=== PATIENT | female | born 1990 | race Caucasian/White ===

== ENCOUNTER 2018-05-19 20:24 | Inpatient (IN) | payer MEDICAID ==
[~2018-05-19] VITALS: Ht 149.9 cm; Wt 82.6 kg
[~2018-05-19 20:24] MED LIST: APAP/HYDROCODON1 T13 PO; COL100 PO; KEFLEX500 MG PO; LAC PO; MAC100 PO; MOTRIN800 MG PO; MP PO; NORCO1 TA2 PO; PER5 PO
[2018-05-19 20:35] VITALS: Ht 149.9 cm; Wt 82.6 kg
[2018-05-19 21:29] LABS: CALCIUM 8.9 mg/dL (8.5-10.1); CARBON DIOXIDE 23.9 mmol/L (21-32); CHLORIDE SERUM 102 mmol/L (98-107); CREATININE SERUM 0.8 mg/dL (0.6-1.0); GFR1 > 60 mL/min; GLUCOSE SERUM 187 mg/dL (74-106); POTASSIUM SERUM 3.4 mmol/L (3.5-5.1); SODIUM SERUM 137 mmol/L (136-145)
[2018-05-19 21:31] LABS: RED CELL DISTRIBUTION WIDTH 14.9 % (11.5-14.5)
[2018-05-19 21:34] LABS: UA SPECIFIC GRAVITY 1.025 (1.005-1.035); urine erythrocyte NEGATIVE (NEGATIVE)
[2018-05-19 21:35] LABS: microscopic required? NO
[2018-05-19 21:39] LABS: BAND NEUTROPHIL 0 % (0-10); BASOPHIL 0 % (0-2); MONOCYTE 4 % (0-7); SEGMENTED NEUTROPHILS 79 % (37-75); rbc morphology (normal/abnorm) NORMAL (NORMAL)
[2018-05-19 21:41] LABS: ALBUMIN 3.7 g/dL (3.4-5.0); ALKALINE PHOSPHATASE 545 U/L (46-116); ALT/SGPT 236 U/L (14-59); AST/SGOT 146 U/L (15-37); BILIRUBIN TOTAL 1.7 mg/dL (0.20-1.00); LIPASE 208 IU/L (73-393)
[2018-05-19 21:44] LABS: PLATELET COUNT 521 x10^3mcL (130-400)
[2018-05-19 23:09] VITALS: BP 124/81
[2018-05-19 23:40] LABS: FREE T4 1.42 ng/dL (0.76-1.46)
[2018-05-19 23:43] LABS: FREE THYROXINE INDEX 4.7 ug/dL (1.4-4.5); T4(THYROXINE) 13.9 ug/dL (4.7-13.3)
[2018-05-20 00:20] LABS: PHOSPHOROUS 3.2 mg/dL (2.5-4.9)
[2018-05-20 00:23] LABS: T3 TOTAL 1.29 ng/mL
[2018-05-20 00:26] LABS: CHOLESTEROL/HDL RATIO 13.4
== END 2018-05-20 00:30 | disposition left against medical advice (07) ==
LOC: ED 20:24 → MU 22:14
PROVIDERS: Emergency Medicine; ADMIT Internal Medicine
DX: K83.1 Obstruction of bile duct (principal); F17.210 Nicotine dependence, cigarettes, uncomplicated
CPT/HCPCS: 83880; 84439; J1885; J2405; J2543; J3010; Q0092

== ENCOUNTER 2018-05-22 19:02 | Inpatient (IN) | payer MEDICAID ==
[~2018-05-22] VITALS: Ht 149.9 cm; Wt 79.0 kg
[2018-05-22 20:36] LABS: BASOPHIL % 0.3 % (0-2)
[2018-05-22 20:39] LABS: CALCIUM 9.3 mg/dL (8.5-10.1); CARBON DIOXIDE 27.3 mmol/L (21-32); CHLORIDE SERUM 104 mmol/L (98-107); CREATININE SERUM 0.8 mg/dL (0.6-1.0); GFR1 > 60 mL/min; GLUCOSE SERUM 174 mg/dL (74-106); POTASSIUM SERUM 3.7 mmol/L (3.5-5.1); SODIUM SERUM 142 mmol/L (136-145)
[2018-05-22 20:40] LABS: RED CELL DISTRIBUTION WIDTH 14.7 % (11.5-14.5)
[2018-05-22 20:41] LABS: PLATELET COUNT 606 x10^3mcL (130-400)
[2018-05-22 20:44] LABS: ALKALINE PHOSPHATASE 366 U/L (46-116); ALT/SGPT 149 U/L (14-59); AST/SGOT 40 U/L (15-37); BILIRUBIN TOTAL 1.02 mg/dL (0.20-1.00); LIPASE 286 IU/L (73-393); TOTAL PROTEIN, SERUM 7.6 g/dL (6.4-8.2)
[2018-05-22 20:46] LABS: ALBUMIN 3.2 g/dL (3.4-5.0)
[2018-05-22 22:07] LABS: MAGNESIUM 2.2 mg/dL (1.8-2.4); PHOSPHOROUS 3.6 mg/dL (2.5-4.9)
[2018-05-22 22:07] LABS: UA SPECIFIC GRAVITY >=1.030 (1.005-1.035); microscopic required? YES; urine erythrocyte NEGATIVE (NEGATIVE)
[2018-05-22 22:08] LABS: CHOLESTEROL/HDL RATIO 8.2
[2018-05-22 22:12] LABS: AMPHETAMINE QUAL UR NONE DETECTED (See below)
[2018-05-22 22:12] LABS: T3 TOTAL 1.31 ng/mL
[2018-05-22 22:14] LABS: FREE T4 1.2 ng/dL (0.76-1.46); FREE THYROXINE INDEX 3.6 ug/dL (1.4-4.5); T4(THYROXINE) 10.2 ug/dL (4.7-13.3)
[2018-05-22 22:50] VITALS: BP 121/77
[2018-05-22 22:57] VITALS: Ht 149.9 cm; Wt 79.0 kg
[2018-05-23 05:24] VITALS: BP 94/55
[2018-05-23 06:24] LABS: CALCIUM 8.7 mg/dL (8.5-10.1); CARBON DIOXIDE 26.9 mmol/L (21-32); CHLORIDE SERUM 108 mmol/L (98-107); CREATININE SERUM 0.8 mg/dL (0.6-1.0); GFR1 > 60 mL/min; GLUCOSE SERUM 116 mg/dL (74-106); MAGNESIUM 2.2 mg/dL (1.8-2.4); PHOSPHOROUS 4.6 mg/dL (2.5-4.9); SODIUM SERUM 144 mmol/L (136-145)
[2018-05-23 06:34] LABS: BASOPHIL % 0.2 % (0-2); RED CELL DISTRIBUTION WIDTH 14.9 % (11.5-14.5)
[2018-05-23 06:54] LABS: ALBUMIN 3.5 g/dL (3.4-5.0); BILIRUBIN DIRECT 0.66 mg/dL (0.0-0.2); BILIRUBIN TOTAL 0.85 mg/dL (0.20-1.00); TOTAL PROTEIN, SERUM 7.9 g/dL (6.4-8.2)
[2018-05-23 08:54] VITALS: BP 107/59
[2018-05-23 08:59] LABS: PLATELET COUNT 542 x10^3mcL (130-400)
[2018-05-23 13:00] VITALS: BP 116/70
[2018-05-23 14:11] VITALS: BP 124/77
== END 2018-05-23 16:20 | disposition left against medical advice (07) ==
LOC: ED 19:02 → MU 21:39 → DU 22:40 → MU 23:37
PROVIDERS: Emergency Medicine; Internal Medicine Gastroenterology; ADMIT Internal Medicine
PROC: 0F798ZZ Dilation of Common Bile Duct, Via Natural or Artificial Opening Endoscopic (ICD-10-PCS; principal; 2018-05-23 12:30)
DX: K80.01 Calculus of gallbladder with acute cholecystitis with obstruction (principal); E44.1 Mild protein-calorie malnutrition; N39.0 Urinary tract infection, site not specified; R73.03 Prediabetes; E78.5 Hyperlipidemia, unspecified; F17.210 Nicotine dependence, cigarettes, uncomplicated; E66.9 Obesity, unspecified; Z68.35 Body mass index [BMI] 35.0-35.9, adult; Z90.49 Acquired absence of other specified parts of digestive tract; Z53.29 Procedure and treatment not carried out because of patient's decision for other reasons
CPT/HCPCS: 43260; 83880; 84439; 99406; C1769; J1610; J1885; J2250; J2543; Q0092; Q9967